=== PATIENT | female | born 1995 | race Caucasian/White ===

== ENCOUNTER 2020-04-17 16:33 | Emergency (ER) | payer OTHER ==
[~2020-04-17] VITALS: Ht 154.9 cm; Wt 54.4 kg
[2020-04-17 16:37] VITALS: BP 120/71; Ht 154.9 cm; Wt 54.4 kg
== END 2020-04-17 17:49 | disposition home or self-care (01) ==
LOC: ED 16:33
DX: M54.31 Sciatica, right side (principal); J45.909 Unspecified asthma, uncomplicated; Z20.828 Contact with and (suspected) exposure to other viral communicable diseases

== ENCOUNTER 2020-06-30 14:59 | Emergency (ER) | payer OTHER ==
[~2020-06-30] VITALS: Ht 154.9 cm; Wt 57.2 kg
[2020-06-30 15:06] VITALS: Ht 154.9 cm; Wt 57.2 kg
[2020-06-30] MEDS ORDERED: KEF500 PO (17:09)
[2020-06-30 17:26] VITALS: BP 100/70
== END 2020-06-30 17:26 | disposition home or self-care (01) ==
LOC: ED 14:59
DX: H00.011 Hordeolum externum right upper eyelid (principal)